=== PATIENT | male | born 1960 ===

== ENCOUNTER 2020-09-06 13:35 | Inpatient (IN) | payer OTHER ==
[~2020-09-06] VITALS: Ht 180.3 cm; Wt 72.6 kg
[2020-09-06] MEDS ORDERED: FORTAMET1000 MG PO (14:10)
[2020-09-06] MEDS ORDERED: LOSARTAN POTASS50 MG PO (14:11)
[2020-09-06] MEDS ORDERED: GLEEVEC400 MG PO (14:12)
[2020-10-11] MEDS ORDERED: INTESTINEX680 M1 PO (10:57)
[2020-10-11] MEDS ORDERED: INTEGRA PLUS C1 EACH PO (10:57)
[2020-10-11] MEDS ORDERED: AMOX-CLAV 875-1 EAC1 PO (10:57)
[2020-10-11] MEDS ORDERED: PROTONIX40 MG PO (10:57)
== END 2020-10-11 20:26 | disposition home or self-care (01) | DRG 392 ==
LOC: ER 13:35 → SURG 21:51 → SURH 09-14 16:20 → O/R 09-16 15:31 → SURH 09-16 15:37
PROVIDERS: ADMIT Internal Medicine; ATTEND Internal Medicine
PROC: 0W9J30Z Drainage of Pelvic Cavity with Drainage Device, Percutaneous Approach (ICD-10-PCS; principal; 2020-09-08)
PROC: 02HV33Z Insertion of Infusion Device into Superior Vena Cava, Percutaneous Approach (ICD-10-PCS; 2020-09-08)
PROC: 30233N1 Transfusion of Nonautologous Red Blood Cells into Peripheral Vein, Percutaneous Approach (ICD-10-PCS; 2020-09-18)
PROC: 0W9J30Z Drainage of Pelvic Cavity with Drainage Device, Percutaneous Approach (ICD-10-PCS; 2020-09-30)
DX: K57.20 Diverticulitis of large intestine with perforation and abscess without bleeding (principal); C92.10 Chronic myeloid leukemia, BCR/ABL-positive, not having achieved remission; E22.2 Syndrome of inappropriate secretion of antidiuretic hormone; E11.9 Type 2 diabetes mellitus without complications; I10 Essential (primary) hypertension; Z20.822 Contact with and (suspected) exposure to COVID-19; E86.0 Dehydration; D64.9 Anemia, unspecified; N43.3 Hydrocele, unspecified; B96.20 Unspecified Escherichia coli [E. coli] as the cause of diseases classified elsewhere; B96.1 Klebsiella pneumoniae [K. pneumoniae] as the cause of diseases classified elsewhere

== ENCOUNTER 2020-10-20 12:14 | Inpatient (IN) | payer OTHER ==
[~2020-10-20] VITALS: Ht 180.3 cm; Wt 72.6 kg
[~2020-10-20 12:14] MED LIST: AMOX-CLAV 875-1 EAC1 PO; FORTAMET1000 MG PO; GLEEVEC400 MG PO; INTEGRA PLUS C1 EACH PO; INTESTINEX680 M1 PO; LOSARTAN POTASS50 MG PO; PROTONIX40 MG PO
[2020-12-09] MEDS ORDERED: INTESTINEX680 M1 PO (17:05)
[2020-12-09] MEDS ORDERED: PRE PROTEIN1 EACH PO (17:07)
[2020-12-09] MEDS ORDERED: GABAPENTIN300 MG PO (17:07)
[2020-12-09] MEDS ORDERED: TOPROL XL50 M1 PO (17:08)
[2020-12-09] MEDS ORDERED: INTEGRA PLUS C1 EACH PO (17:09)
[2020-12-09] MEDS ORDERED: CANDESARTAN CILE8 MG PO (17:09)
[2020-12-09] MEDS ORDERED: VITAMIN D3125 MC2 PO (17:12)
[2020-12-09] MEDS ORDERED: LIDODERM1 EACH TOP (17:13)
== END 2020-12-09 20:03 | disposition home or self-care (01) | DRG 856 ==
LOC: ER 12:14 → SEC-K 22:02 → MEDI 22:02 → ICU 22:02 → MEDI 10-21 14:03 → ICU 11-20 22:01 → SURH 11-21 17:38
PROVIDERS: Surgery; ADMIT Internal Medicine; ATTEND Internal Medicine
PROC: 8E0ZXY6 Isolation (ICD-10-PCS; 2020-10-22)
PROC: 0W9G30Z Drainage of Peritoneal Cavity with Drainage Device, Percutaneous Approach (ICD-10-PCS; 2020-10-23)
PROC: 02HV33Z Insertion of Infusion Device into Superior Vena Cava, Percutaneous Approach (ICD-10-PCS; 2020-10-27)
PROC: 4A12X4Z Monitoring of Cardiac Electrical Activity, External Approach (ICD-10-PCS; 2020-11-11)
PROC: 3E0F7SF Introduction of Other Gas into Respiratory Tract, Via Natural or Artificial Opening (ICD-10-PCS; 2020-11-11)
PROC: 4A033R1 Measurement of Arterial Saturation, Peripheral, Percutaneous Approach (ICD-10-PCS; 2020-11-12)
PROC: 30233N1 Transfusion of Nonautologous Red Blood Cells into Peripheral Vein, Percutaneous Approach (ICD-10-PCS; 2020-11-18)
PROC: 0D1B4Z4 Bypass Ileum to Cutaneous, Percutaneous Endoscopic Approach (ICD-10-PCS; principal; 2020-11-20 13:45)
DX: T81.43XA Infection following a procedure, organ and space surgical site, initial encounter (principal); I50.23 Acute on chronic systolic (congestive) heart failure; K65.1 Peritoneal abscess; N32.1 Vesicointestinal fistula; C92.10 Chronic myeloid leukemia, BCR/ABL-positive, not having achieved remission; T85.618A Breakdown (mechanical) of other specified internal prosthetic devices, implants and grafts, initial encounter; K57.20 Diverticulitis of large intestine with perforation and abscess without bleeding; J98.11 Atelectasis; N17.8 Other acute kidney failure; E11.9 Type 2 diabetes mellitus without complications; Y83.8 Other surgical procedures as the cause of abnormal reaction of the patient, or of later complication, without mention of misadventure at the time of the procedure; D64.9 Anemia, unspecified; B96.29 Other Escherichia coli [E. coli] as the cause of diseases classified elsewhere; B96.1 Klebsiella pneumoniae [K. pneumoniae] as the cause of diseases classified elsewhere; R31.9 Hematuria, unspecified; E87.6 Hypokalemia; T36.7X5A Adverse effect of antifungal antibiotics, systemically used, initial encounter; R00.0 Tachycardia, unspecified; R09.02 Hypoxemia; I11.0 Hypertensive heart disease with heart failure; F43.21 Adjustment disorder with depressed mood; Z20.822 Contact with and (suspected) exposure to COVID-19; E86.0 Dehydration
CPT/HCPCS: 72196; 74182